=== PATIENT | female | born 1935 | race Caucasian/White ===

== ENCOUNTER 2020-03-23 10:10 | Inpatient (IN) ==
--- NOTE | 2020-03-23 11:09 | DR.GENAD ---
HPI Time Seen Time Seen by Provider: 03/23/20 11:05 PCP Primary Care Physician: KAREN CHANCE Complaint/Symptoms Chief Complaint:: PT C/O 2 WEEK HISTORY OF PROGRESSIVELY WORSENING GENERALIZED WEAKNESS.PT HAS HAD DECREASED PO INTAKE FOR SEVERAL WEEKS. PT ALSO C/O SEVERE DIARRHEA SINCE YESTERDAY. PT ALSO C/O INTERMITTENT EXERTIONAL SHORTNESS OF AMMON TH. Source History Provided: Patient Mode of Arrival Mode of Arrival: Ambulatory Timing Onset of Chief Complaint: 03/23/20 Came on: Gradually Duration How lon Duration: Days Severity Severity: Moderate Modifying Factors Worsens:: unknown Associated Signs and Symptoms Associated Signs and Symptoms: diarrhea weakness PMH PMH Past Medical History: Yes Past Medical History: Arthritis, Diabetes, Dyslipidemia, Hypertension and Renal Disease Past Surgical History: Yes Surgical History: Ortho Surgery Family History History of Family Medical Conditions: No Family Medical History: Diabetes Mellitus, PA and Hypertension Social History Does patient currently use any type of tobacco product: No Have you used tobacco products in the last 12 months: No Type of Tobacco Use: None Does any household member use tobacco: No Alcohol Use: None Do you use any recreational Drugs:: No Lives With: Alone Lives Where: Home Infectious screening In the last 2 months have you had wt loss of >10#?: NO Have you had fever, night sweats or hemotysis?: No Have you traveled outside the country in the last 6 months?: No Isolation: Standard ROS Review of Systems Constitutional: Weakness Eyes: No Symptoms Reported ENTM: No Symptoms Reported Respiratoy: No Symptoms Reported Cardiovascular: No Symptoms Reported Gastrointestinal/Abdominal: No Symptoms Reported Genitourinary: No Symptoms Reported Neurological: Weakness Musculoskeletal: No Symptoms Reported Integumentary: No Symptoms Reported Hematologic/Lymphatic: No Symptoms Reported Endocrine: No Symptoms Reported Psychiatric: Depression All Other Systems: Reviewed and Negative PE Vital Signs Vitals: Temperature 97.9 F Pulse Rate 90 Respiratory Rate 18 Blood Pressure [Left Arm] 164/76 Blood Pressure 155/67 O2 Sat by Pulse Oximetry 100 General Limitations: No Limitations General Appearance: Alert and In No Apparent Distress Head Head Exam: Normal Inspection, Atraumatic and Normocephalic Eyes Eye exam: Normal Appearance and EOMI ENT ENT Exam: Normal Exam and Normal Oropharynx External Ear Exam: Normal External Inspection Nose Exam: Normal Nose Exam Mouth Exam: Normal Inspection Throat Exam: Normal Inspection and Tonsillar Erythema Neck Neck Exam: Normal Inspection, Full ROM and Trachea Midline Chest Chest Inspection: Normal Inspection Respiratory Respiratory Exam: Normal Lung Sounds Bilat Respiratory Exam: Bilateral: Clear to Auscultation Cardiovascular Cardiovascular Exam: Regular Rate Abdominal Exam Abdominal Exam: Normal Inspection, Soft and Hyperactive Bowel Sounds; negative Normal Bowel Sounds, Distention, Tenderness and Guarding Extremities Extremities Exam: Normal Inspection and Full ROM Back Back Exam: Normal Inspection Neurologic Neurological Exam: Alert, Oriented X3, CN II-XII Intact and Normal Gait Psychiatric Psychiatric Exam: Depressed Skin Skin Exam: Normal Color COURSE Consultation Called: : Call Returned: : Consultation Comments: case discussed with DR. Rose admit and consult pharmacy for 3% saline ROR Labs Reviewed Result Diagrams: 03/23/20 11:27 03/23/20 11: Laboratory: WBC 11.4 X10^3/uL (3.6-10.0) H 03/23/20 11:27 RBC 4.21 X10^6/uL (3.5-5.4) 03/23/20 11:27 Hgb 12.5 g/dL (12.0-16.0) 03/23/20 11: Hct 34.6 % (36.0-47.0) L 03/23/20 11: MCV 82.2 fL (80.0-100.0) 03/23/20 11:27 MCH 29.7 pg (27.0-34.0) 03/23/20 11:27 MCHC 36.2 g/dL (33.0-35.0) H 03/23/20 11:27 RDW 12.4 % (11.6-16.5) 03/23/20 11:27 Plt Count 356 X10^3/uL (150.0-450.0) 03/23/20 11: MPV 6.6 fL (7.4-11.0) L 03/23/20 11:27 Neut % (Auto) 87.6 % (42.0-75.0) H 03/23/20 11:27 Lymph % (Auto) 4.7 % (21.0-51.0) L 03/23/20 11: [place] % (Auto) 7.4 % (0.0-13.0) 03/23/20 11:27 Eos % (Auto) 0.0 % (0.9-2.9) L 03/23/20 11:27 Baso % (Auto) 0.3 % (0.2-1.0) 03/23/20 11:27 Neut # (Auto) 10.0 x10^3/uL (2.2-4.8) H 03/23/20 11:27 Lymph # (Auto) 0.5 X10^3/uL (1.3-2.9) L 03/23/20 11:27 [place] # (Auto) 0.8 x10^3/uL (0.3-0.8) 03/23/20 11:27 Eos # (Auto) 0.0 x10^3/uL (0.0-0.2) 03/23/20 11:27 Baso # (Auto) 0.0 X10^3/uL (0.0-0.1) 03/23/20 11:27 Absolute Nucleated RBC 0.0 /100WBC 03/23/20 11:27 Sodium 105 mmol/L (136-145) L* 03/23/20 11:27 Corrected Sodium 108 mmol/L (136-145) L 03/23/20 11:27 Potassium 5.1 mmol/L (3.5-5.1) 03/23/20 11:27 Chloride 72 mmol/L (98-107) L* 03/23/20 11:27 Carbon Dioxide 23.5 mmol/L (21-32) 03/23/20 11:27 BUN 22 mg/dL (7-18) H 03/23/20 11:27 Creatinine 1.58 mg/dL (0.55-1.02) H 03/23/20 11:27 Est GFR (MDRD) Af Amer 40 (>60) L 03/23/20 11:27 Est GFR (MDRD) Non-Af 33 (>60) L 03/23/20 11:27 Glucose 242 mg/dL (65-99) H 03/23/20 11:27 Calcium 9.4 mg/dL (8.5-10.1) 03/23/20 11:27 Corrected Calcium TNP 03/23/20 11:27 Total Bilirubin 0.90 mg/dL (0.2-1.0) 03/23/20 11:27 AST 33 Units/L (15-37) 03/23/20 11:27 ALT 34 Units/L (12-78) 03/23/20 11:27 Alkaline Phosphatase 59 Units/L (46-116) 03/23/20 11:27 Creatine Kinase 317 Units/L (26-192) H 03/23/20 11:27 CK-MB (CK-2) 8.3 ng/mL (0-4.0) H* 03/23/20 11:27 CK/CKMB % Calc 2.6 % (<4) 03/23/20 11:27 Troponin I < 0.02 ng/mL (0-1.5) 03/23/20 11:27 Total Protein 8.4 g/dL (6.4-8.2) H 03/23/20 11:27 Albumin 4.4 g/dL (3.4-5.0) 03/23/20 11: Globulin 4.0 g/dL (2.5-4.5) 03/23/20 11: Albumin/Globulin Ratio 1.1 Ratio (1.1-2.1) 03/23/20 11:27 Specimen Type Clean catch urine 03/23/20 12:17 Urine Color Pale yellow (YELLOW) 03/23/20 12:17 Urine Appearance Clear (CLEAR) 03/23/20 12:17 Urine pH 6.0 (5.0 - 8.0) 03/23/20 12:17 Ur Specific [place] 1.010 (1.000-1.030) 03/23/20 12:17 Urine Protein 2+ (NEGATIVE) 03/23/20 12:17 Urine Glucose (UA) 3+ (NEGATIVE) 03/23/20 12:17 Urine Ketones 1+ (NEGATIVE) 03/23/20 12:17 Urine Occult Blood 2+ (NEGATIVE) 03/23/20 12:17 Urine Nitrite Negative (NEGATIVE) 03/23/20 12:17 Urine Bilirubin Negative (NEGATIVE) 03/23/20 12:17 Urine Urobilinogen Normal (NORMAL) 03/23/20 12:17 Ur Leukocyte Esterase Negative (NEGATIVE) 03/23/20 12:17 Urine RBC 0-2 /HPF (0-3) 03/23/20 12:17 Urine WBC 0-2 /HPF (0-5) 03/23/20 12:17 Ur Squamous Epith Cells Rare /HPF (NEGATIVE) 03/23/20 12:17 Urine Bacteria Negative /HPF (NEGATIVE) 03/23/20 12:17 Ur Culture Indicated? No/not indicated 03/23/20 12:17 EKG Rate: 96 Ross: Normal Rhythm: NSR Block: None Hypertrophy: None ST: Ant (borderline ST elevation) Opioid Opioid Risk Tool Age (Yoav box if 16-45): No History of Preadolescent Sexual Abuse: No Total: 0 Total Score Risk Category: Low Risk Copyright: Inocente HERNANDEZ predicting aberrant behaviors Instructions Forms: Precautions for COVID19 Patient Portal Social Distancing
[2020-03-23] MEDS ORDERED: NS 500 ML IV 1,000 ML IV ONE (11:15)
[2020-03-23] MEDS ORDERED: NS 500 ML IV 500 ML IV ONE (11:23)
--- NOTE | 2020-03-23 11:56 | RAD ---
HISTORYN/V ABD PAINSTUDYACUTE ABDOMEN SERIESCOMPARISONNoneTECHNIQUEThree view acute abdomen series.FINDINGSThe cardiac and mediastinal contours are within normal limits. The lungs are clear without focal consolidation or segmental collapse. No pleural effusion or pneumothorax.Nonspecific bowel gas pattern. Dilated gas-filled loop of bowel in the right upper quadrant measuring 7.1 cm. No definite pneumatosis, free air or portal venous gas. No suspicious abdominal calcifications. Calcifications in the pelvis are likely phleboliths.IMPRESSIONNonspecific bowel gas pattern with dilated gas-filled loop of bowel in the right upper quadrant.Electronically signed by: Campos Nichols (Mar 23, 2020 11:56:19)
[2020-03-23 11:57] LABS: BASOPHILS % (AUTO) 0.3 % (0.2-1.0); HEMATOCRIT 34.6 % (36.0-47.0); HEMOGLOBIN 12.5 g/dL (12.0-16.0); LYMPHOCYTES # (AUTO) 0.5 X10^3/uL (1.3-2.9); LYMPHOCYTES % (AUTO) 4.7 % (21.0-51.0); MEAN CORPUSCULAR HEMOGLOBIN 29.7 pg (27.0-34.0); MEAN CORPUSCULAR HGB CONC 36.2 g/dL (33.0-35.0); MEAN CORPUSCULAR VOLUME 82.2 fL (80.0-100.0); MEAN PLATELET VOLUME 6.6 fL (7.4-11.0); MONOCYTES # (AUTO) 0.8 x10^3/uL (0.3-0.8); MONOCYTES % (AUTO) 7.4 % (0.0-13.0); NEUTROPHILS % (AUTO) 87.6 % (42.0-75.0); PLATELET COUNT 356 X10^3/uL (150.0-450.0); RED BLOOD COUNT 4.21 X10^6/uL (3.5-5.4); RED CELL DISTRIBUTION WIDTH 12.4 % (11.6-16.5); WHITE BLOOD COUNT 11.4 X10^3/uL (3.6-10.0)
[2020-03-23 12:14] LABS: ALANINE AMINOTRANSFERASE 34 Units/L (12-78); ALBUMIN 4.4 g/dL (3.4-5.0); ALKALINE PHOSPHATASE 59 Units/L (46-116); ASPARTATE AMINO TRANSFERASE 33 Units/L (15-37); BLOOD UREA NITROGEN 22 mg/dL (7-18); CALCIUM 9.4 mg/dL (8.5-10.1); CARBON DIOXIDE 23.5 mmol/L (21-32); CKMB % 2.6 % (<4); COR NA(FOR HYPERGLY) 108 mmol/L (136-145); CREATINE KINASE 317 Units/L (26-192); CREATININE 1.58 mg/dL (0.55-1.02); TOTAL PROTEIN 8.4 g/dL (6.4-8.2); TROPONIN I < 0.02 ng/mL (0-1.5); eGFR NON BLACK RACES 33 (>60)
[2020-03-23 12:28] LABS: BILIRUBIN,URINE NEGATIVE (NEGATIVE); BLOOD/HEMOGLOBIN,URINE 2+ (NEGATIVE); GLUCOSE, URINE 3+ (NEGATIVE); KETONES,URINE 1+ (NEGATIVE); LEUKOCYTE ESTERASE ,URINE NEGATIVE (NEGATIVE); NITRITES,URINE NEGATIVE (NEGATIVE); PROTEIN,URINE 2+ (NEGATIVE); UROBILINOGEN,URINE NORMAL (NORMAL)
[2020-03-23 12:31] LABS: CHLORIDE 72 mmol/L (98-107); CREATINE KINASE MB 8.3 ng/mL (0-4.0); SODIUM 105 mmol/L (136-145)
[2020-03-23 12:35] LABS: APPEARANCE,URINE CLEAR (CLEAR); BACTERIA,URINE NEGATIVE /HPF (NEGATIVE); COLOR,URINE PALE YELLOW (YELLOW); RBC,URINE 0-2 /HPF (0-3); SQUAMOUS EPITHELIAL CELL,UR RARE /HPF (NEGATIVE)
[2020-03-23] MEDS ORDERED: NS 1000 ML 1,000 ML ONE (12:58)
[2020-03-23] MEDS: NS 1000 ML 1,000 ML IV SCH (13:02)
[2020-03-23] MEDS ORDERED: HumuLIN R SUBCUT ONE (13:54)
[2020-03-23] MEDS ORDERED: HumuLIN R ONE (13:56)
[2020-03-23] MEDS ORDERED: SODIUM CHL HYPERTONIC ** 3% ** 500 ML IV NR (15:00)
[2020-03-23 20:02] VITALS: BMI 21.2
[2020-03-24] MEDS: NS 1000 ML 1,000 ML IV SCH ×3 (05:37→22:33)
[2020-03-24 06:34] LABS: ALANINE AMINOTRANSFERASE 29 Units/L (12-78); ALBUMIN 3.6 g/dL (3.4-5.0); ALKALINE PHOSPHATASE 53 Units/L (46-116); ASPARTATE AMINO TRANSFERASE 25 Units/L (15-37); BLOOD UREA NITROGEN 15 mg/dL (7-18); CALCIUM 8.7 mg/dL (8.5-10.1); CARBON DIOXIDE 23.7 mmol/L (21-32); CHLORIDE 86 mmol/L (98-107); CREATININE 1.15 mg/dL (0.55-1.02); TOTAL PROTEIN 7.2 g/dL (6.4-8.2); eGFR NON BLACK RACES 48 (>60)
[2020-03-24 06:38] LABS: SODIUM 118 mmol/L (136-145)
[2020-03-24] MEDS ORDERED: INFeD or DEXFERRUM 25 MG in NS 100 ML IV 100 ML IV NR (08:00)
[2020-03-24] MEDS ORDERED: SODIUM CHL HYPERTONIC ** 3% ** 500 ML IV NR (08:00)
[2020-03-24] MEDS ORDERED: ZESTRIL TAB 20 MG ONE (08:37)
[2020-03-24] MEDS: ASPIRIN EC 81 MG PO SCH (08:45)
[2020-03-24] MEDS: ZESTRIL TAB 20 MG PO SCH (08:45)
[2020-03-24] MEDS: NORVASC TAB 10 MG PO SCH (08:45)
[2020-03-24] MEDS ORDERED: NS IV NR (09:00)
[2020-03-24] MEDS ORDERED: INFED OR DEXFERRUM IV NR (09:00)
[2020-03-24] MEDS ORDERED: VITAMIN D (1.25MG) PO SCH (09:00)
[2020-03-24] MEDS: GLUCOPHAGE XR 24-HR PO SCH ×2 (11:05→22:00)
[2020-03-24] MEDS: ACTOS PO SCH (11:05)
[2020-03-24 18:12] LABS: CALCIUM 9.1 mg/dL (8.5-10.1); CREATININE 1.27 mg/dL (0.55-1.02)
[2020-03-25] MEDS: NS 1000 ML 1,000 ML IV SCH ×4 (06:01→20:00)
[2020-03-25 06:24] LABS: ALBUMIN 3.3 g/dL (3.4-5.0); ALKALINE PHOSPHATASE 51 Units/L (46-116); BLOOD UREA NITROGEN 15 mg/dL (7-18); CALCIUM 8.9 mg/dL (8.5-10.1); CHLORIDE 93 mmol/L (98-107); COR CA(FOR HYPOALB) 9.5 mg/dL (8.5-10.1); CREATININE 1.17 mg/dL (0.55-1.02); TOTAL PROTEIN 6.7 g/dL (6.4-8.2); eGFR NON BLACK RACES 47 (>60)
[2020-03-25 06:39] LABS: BASOPHILS % (AUTO) 0.5 % (0.2-1.0); EOSINOPHILS % (AUTO) 0.4 % (0.9-2.9); HEMATOCRIT 30.4 % (36.0-47.0); HEMOGLOBIN 11.1 g/dL (12.0-16.0); LYMPHOCYTES # (AUTO) 1.5 X10^3/uL (1.3-2.9); LYMPHOCYTES % (AUTO) 17.2 % (21.0-51.0); MEAN CORPUSCULAR HGB CONC 36.4 g/dL (33.0-35.0); MEAN CORPUSCULAR VOLUME 85.2 fL (80.0-100.0); MEAN PLATELET VOLUME 7.4 fL (7.4-11.0); MONOCYTES # (AUTO) 1.1 x10^3/uL (0.3-0.8); MONOCYTES % (AUTO) 12.8 % (0.0-13.0); NEUTROPHILS # (AUTO) 6.2 x10^3/uL (2.2-4.8); NEUTROPHILS % (AUTO) 69.1 % (42.0-75.0); PLATELET COUNT 336 X10^3/uL (150.0-450.0); RED BLOOD COUNT 3.57 X10^6/uL (3.5-5.4); RED CELL DISTRIBUTION WIDTH 12.6 % (11.6-16.5); WHITE BLOOD COUNT 8.9 X10^3/uL (3.6-10.0)
[2020-03-25 06:58] LABS: ALANINE AMINOTRANSFERASE 24 Units/L (12-78); ASPARTATE AMINO TRANSFERASE 26 Units/L (15-37)
[2020-03-25 07:01] LABS: SODIUM 124 mmol/L (136-145)
[2020-03-25] MEDS ORDERED: ZESTRIL TAB 20 MG ONE (08:02)
[2020-03-25] MEDS: ZESTRIL TAB 20 MG PO SCH (08:48)
[2020-03-25] MEDS: ACTOS PO SCH (08:49)
[2020-03-25] MEDS: ASPIRIN EC 81 MG PO SCH (08:49)
[2020-03-25] MEDS: NORVASC TAB 10 MG PO SCH (08:50)
[2020-03-25] MEDS: GLUCOPHAGE XR 24-HR PO SCH ×2 (08:50→22:00)
[2020-03-25] MEDS ORDERED: SODIUM CHL HYPERTONIC ** 3% ** 500 ML IV NR (10:00)
[2020-03-26] MEDS: NS 1000 ML 1,000 ML IV SCH ×3 (05:28→22:56)
[2020-03-26 06:33] LABS: BASOPHILS # (AUTO) 0.1 X10^3/uL (0.0-0.1); BASOPHILS % (AUTO) 0.5 % (0.2-1.0); EOSINOPHILS % (AUTO) 0.3 % (0.9-2.9); HEMATOCRIT 32.2 % (36.0-47.0); HEMOGLOBIN 11.6 g/dL (12.0-16.0); LYMPHOCYTES # (AUTO) 1.1 X10^3/uL (1.3-2.9); LYMPHOCYTES % (AUTO) 9.6 % (21.0-51.0); MEAN CORPUSCULAR HEMOGLOBIN 30.5 pg (27.0-34.0); MEAN CORPUSCULAR HGB CONC 36.2 g/dL (33.0-35.0); MEAN CORPUSCULAR VOLUME 84.2 fL (80.0-100.0); MONOCYTES # (AUTO) 1.2 x10^3/uL (0.3-0.8); MONOCYTES % (AUTO) 9.8 % (0.0-13.0); NEUTROPHILS # (AUTO) 9.4 x10^3/uL (2.2-4.8); NEUTROPHILS % (AUTO) 79.8 % (42.0-75.0); PLATELET COUNT 360 X10^3/uL (150.0-450.0); RED BLOOD COUNT 3.82 X10^6/uL (3.5-5.4); RED CELL DISTRIBUTION WIDTH 12.7 % (11.6-16.5); WHITE BLOOD COUNT 11.8 X10^3/uL (3.6-10.0)
[2020-03-26 07:02] LABS: ALBUMIN 3.7 g/dL (3.4-5.0); ALKALINE PHOSPHATASE 56 Units/L (46-116); BLOOD UREA NITROGEN 17 mg/dL (7-18); CALCIUM 9.3 mg/dL (8.5-10.1); CARBON DIOXIDE 20.8 mmol/L (21-32); CHLORIDE 94 mmol/L (98-107); COR NA(FOR HYPERGLY) 129 mmol/L (136-145); CREATININE 1.18 mg/dL (0.55-1.02); SODIUM 128 mmol/L (136-145); TOTAL PROTEIN 7.4 g/dL (6.4-8.2); eGFR NON BLACK RACES 46 (>60)
[2020-03-26 07:17] LABS: ALANINE AMINOTRANSFERASE 23 Units/L (12-78); ASPARTATE AMINO TRANSFERASE 30 Units/L (15-37)
[2020-03-26] MEDS ORDERED: ZESTRIL TAB 20 MG ONE (07:47)
[2020-03-26] MEDS: ASPIRIN EC 81 MG PO SCH (09:10)
[2020-03-26] MEDS: ACTOS PO SCH (09:10)
[2020-03-26] MEDS: NORVASC TAB 10 MG PO SCH (09:10)
[2020-03-26] MEDS: ZESTRIL TAB 20 MG PO SCH (09:10)
[2020-03-26] MEDS: GLUCOPHAGE XR 24-HR PO SCH ×2 (09:10→20:15)
[2020-03-26] MEDS ORDERED: SODIUM CHL HYPERTONIC ** 3% ** 500 ML IV NR (10:00)
[2020-03-27 06:21] LABS: ALANINE AMINOTRANSFERASE 24 Units/L (12-78); ALBUMIN 3.6 g/dL (3.4-5.0); ALKALINE PHOSPHATASE 53 Units/L (46-116); ASPARTATE AMINO TRANSFERASE 26 Units/L (15-37); BLOOD UREA NITROGEN 15 mg/dL (7-18); CALCIUM 9.3 mg/dL (8.5-10.1); CARBON DIOXIDE 22.5 mmol/L (21-32); CHLORIDE 97 mmol/L (98-107); CREATININE 1.06 mg/dL (0.55-1.02); SODIUM 132 mmol/L (136-145); TOTAL PROTEIN 7.2 g/dL (6.4-8.2); eGFR NON BLACK RACES 53 (>60)
[2020-03-27 06:30] LABS: BASOPHILS # (AUTO) 0.1 X10^3/uL (0.0-0.1); BASOPHILS % (AUTO) 0.9 % (0.2-1.0); EOSINOPHILS # (AUTO) 0.1 x10^3/uL (0.0-0.2); EOSINOPHILS % (AUTO) 0.5 % (0.9-2.9); HEMATOCRIT 31.4 % (36.0-47.0); HEMOGLOBIN 11.3 g/dL (12.0-16.0); LYMPHOCYTES # (AUTO) 1.6 X10^3/uL (1.3-2.9); LYMPHOCYTES % (AUTO) 14.9 % (21.0-51.0); MEAN CORPUSCULAR HEMOGLOBIN 30.8 pg (27.0-34.0); MEAN CORPUSCULAR HGB CONC 36.1 g/dL (33.0-35.0); MEAN CORPUSCULAR VOLUME 85.3 fL (80.0-100.0); MEAN PLATELET VOLUME 7.2 fL (7.4-11.0); MONOCYTES # (AUTO) 0.9 x10^3/uL (0.3-0.8); MONOCYTES % (AUTO) 8.5 % (0.0-13.0); NEUTROPHILS # (AUTO) 8.2 x10^3/uL (2.2-4.8); NEUTROPHILS % (AUTO) 75.2 % (42.0-75.0); PLATELET COUNT 343 X10^3/uL (150.0-450.0); RED BLOOD COUNT 3.68 X10^6/uL (3.5-5.4); RED CELL DISTRIBUTION WIDTH 12.6 % (11.6-16.5); WHITE BLOOD COUNT 10.9 X10^3/uL (3.6-10.0)
[2020-03-27] MEDS ORDERED: ZESTRIL TAB 20 MG ONE (07:30)
[2020-03-27] MEDS: ACTOS PO SCH (09:28)
[2020-03-27] MEDS: NORVASC TAB 10 MG PO SCH (09:29)
[2020-03-27] MEDS: ZESTRIL TAB 20 MG PO SCH (09:29)
[2020-03-27] MEDS: ASPIRIN EC 81 MG PO SCH (09:29)
[2020-03-27] MEDS: GLUCOPHAGE XR 24-HR PO SCH (09:30)
[2020-03-27] MEDS: NS 1000 ML 1,000 ML IV SCH (09:30)
[2020-03-27] MEDS ORDERED: SODIUM CHL HYPERTONIC 3% IV NR ×2 (10:00→11:30)
[2020-03-27 11:04] LABS: ALANINE AMINOTRANSFERASE 24 Units/L (12-78); ALBUMIN 3.4 g/dL (3.4-5.0); ALKALINE PHOSPHATASE 57 Units/L (46-116); ASPARTATE AMINO TRANSFERASE 23 Units/L (15-37); BLOOD UREA NITROGEN 15 mg/dL (7-18); CALCIUM 8.9 mg/dL (8.5-10.1); CARBON DIOXIDE 22.6 mmol/L (21-32); CHLORIDE 99 mmol/L (98-107); COR NA(FOR HYPERGLY) 134 mmol/L (136-145); CREATININE 1.38 mg/dL (0.55-1.02); SODIUM 133 mmol/L (136-145); eGFR NON BLACK RACES 39 (>60)
[2020-03-27 12:51] VITALS: BP 149/65
[2020-03-27 12:52] LABS: ALANINE AMINOTRANSFERASE 28 Units/L (12-78); ALBUMIN 3.6 g/dL (3.4-5.0); ALKALINE PHOSPHATASE 55 Units/L (46-116); ASPARTATE AMINO TRANSFERASE 27 Units/L (15-37); BLOOD UREA NITROGEN 17 mg/dL (7-18); CALCIUM 8.9 mg/dL (8.5-10.1); CARBON DIOXIDE 23.5 mmol/L (21-32); CHLORIDE 100 mmol/L (98-107); COR NA(FOR HYPERGLY) 136 mmol/L (136-145); CREATININE 1.48 mg/dL (0.55-1.02); SODIUM 135 mmol/L (136-145); TOTAL PROTEIN 7.2 g/dL (6.4-8.2); eGFR NON BLACK RACES 36 (>60)
== END 2020-03-27 14:30 | disposition home health service (06) | DRG 641 ==
LOC: ER 10:30 → MED/SURG 13:23
PROVIDERS: ADMIT Obstetrics & Gynecology Obstetrics; ATTEND Obstetrics & Gynecology Obstetrics
DX: M19.90 Unspecified osteoarthritis, unspecified site; E87.1 Hypo-osmolality and hyponatremia; I10 Essential (primary) hypertension; R19.7 Diarrhea, unspecified; E11.65 Type 2 diabetes mellitus with hyperglycemia; R26.89 Other abnormalities of gait and mobility; E78.2 Mixed hyperlipidemia; Z66 Do not resuscitate; R10.84 Generalized abdominal pain